=== PATIENT | female | born 1990 | race Caucasian/White ===

== ENCOUNTER 2016-12-03 10:38 | Inpatient (IN) | payer OTHER ==
[~2016-12-03] VITALS: Ht 172.7 cm; Wt 95.5 kg
[~2016-12-03 10:38] MED LIST: METO25TA35 PO
[2016-12-03] MEDS ORDERED: LACTATED RINGERS 1,000 ML IV SCH ×2 (11:54→17:00)
[2016-12-03] MEDS ORDERED: OXYTOCIN 30U/ 0.9% NaCL 500ML 500 ML IV SCH (11:54)
[2016-12-03] MEDS ORDERED: METOCLOPRAMIDE 5 MG/ML, 2ML IV ONE (12:00)
[2016-12-03] MEDS ORDERED: PLEASE ENTER HEIGHT AND WEIGHT MC SCH (12:00)
[2016-12-03] MEDS ORDERED: SODIUM CITRATE/CITRIC ACID 30 ML UDC PO ONE (12:00)
[2016-12-03] MEDS ORDERED: LACTATED RINGERS 1,000 ML IVBOLUS ONE (12:00)
[2016-12-03 12:32] VITALS: BP 124/90
[2016-12-03 12:42] LABS: HEMATOCRIT 35.9 % (34.6-47.8); HEMOGLOBIN 11.8 g/dL (11.7-16.4)
[2016-12-03] MEDS ORDERED: LIDOCAINE-MPF 2% ,5ML ONE (13:28)
[2016-12-03] MEDS ORDERED: PREN1TAB69 PO (13:49)
[2016-12-03] MEDS ORDERED: RANI150C PO (13:50)
[2016-12-03] MEDS ORDERED: OXYTOCIN 30U/ 0.9% NaCL 500ML 500 ML ONE (14:00)
[2016-12-03] MEDS ORDERED: METOCLOPRAMIDE 5 MG/ML, 2ML ONE (14:00)
[2016-12-03] MEDS ORDERED: SODIUM CITRATE/CITRIC ACID 30 ML UDC ONE (14:00)
[2016-12-03] MEDS: LACTATED RINGERS 1,000 ML IV SCH ×3 (14:27→22:27)
[2016-12-03] MEDS: OXYTOCIN 30U/ 0.9% NaCL 500ML 500 ML IV SCH (14:27)
[2016-12-03] MEDS ORDERED: METOCLOPRAMIDE 5 MG/ML, 2ML IV PRN (14:30)
[2016-12-03] MEDS ORDERED: SIMETHICONE 80 MG CHEW TAB PO PRN (14:30)
[2016-12-03] MEDS ORDERED: ONDANSETRON 2MG/ML, 2ML IV PRN (14:30)
[2016-12-03] MEDS ORDERED: ACETAMINOPHEN 325 MG TABLET PO PRN (14:30)
[2016-12-03] MEDS ORDERED: CALCIUM CARBONATE 500 MG TAB.CHEW PO PRN (14:30)
[2016-12-03] MEDS ORDERED: EPHEDRINE 50 MG/ML, 1ML IVPush PRN (15:30)
[2016-12-03] MEDS ORDERED: ONDANSETRON 2MG/ML, 2ML IVPush PRN (15:30)
[2016-12-03] MEDS ORDERED: MEPERIDINE/PF 25MG/0.5ML IVPush PRN (15:30)
[2016-12-03] MEDS ORDERED: HYDROmorphone 1 MG/ML, 1ML IV PRN (15:30)
[2016-12-03] MEDS ORDERED: OXYcodone 5 MG/5 ML ORAL.SOL UDC PO PRN (15:30)
[2016-12-03] MEDS ORDERED: FENTANYL PF 100 MCG/2ML IV PRN (15:30)
[2016-12-03] MEDS: METOPROLOL 1 MG/ML, 5ML IVPush PRN ×3 (16:11→17:20)
[2016-12-03] MEDS ORDERED: OXYcodone 5 MG/5 ML ORAL.SOL UDC ONE (16:37)
[2016-12-03] MEDS ORDERED: MEPERIDINE/PF 100 MG/ML ONE (16:53)
[2016-12-03] MEDS: METOPROLOL TARTRATE 25 MG TABLET PO SCH (18:13)
[2016-12-03] MEDS ORDERED: KETOROLAC 30 MG/1 ML ONE (19:56)
[2016-12-03] MEDS ORDERED: OXYcodone/APAP 5/325MG TABLET ONE ×2 (19:56→23:44)
[2016-12-03] MEDS: KETOROLAC 30 MG/1 ML IV SCH ×2 (20:00→20:30)
[2016-12-03] MEDS: OXYcodone/APAP 5/325MG TABLET PO PRN (20:00)
[2016-12-03 20:10] VITALS: BP 128/85
[2016-12-03] MEDS ORDERED: hydrALAzine 20 MG/ML, 1ML IV PRN (21:30)
[2016-12-04] MEDS: OXYcodone/APAP 5/325MG TABLET PO PRN ×6 (00:06→17:53)
[2016-12-04 00:19] VITALS: BP 123/80
[2016-12-04] MEDS: LACTATED RINGERS 1,000 ML IV SCH ×4 (00:27→22:27)
[2016-12-04] MEDS: OXYTOCIN 30U/ 0.9% NaCL 500ML 500 ML IV SCH (00:27)
[2016-12-04] MEDS: KETOROLAC 30 MG/1 ML IV SCH (02:15)
[2016-12-04] MEDS ORDERED: IBUPROFEN 600 MG TABLET ONE ×2 (02:17→08:17)
[2016-12-04] MEDS: IBUPROFEN 600 MG TABLET PO PRN ×4 (02:30→20:16)
[2016-12-04] MEDS ORDERED: OXYcodone/APAP 5/325MG TABLET ONE ×2 (03:55→08:17)
[2016-12-04 04:07] VITALS: BP 119/72
[2016-12-04 05:11] LABS: HEMATOCRIT 25.3 % (34.6-47.8); HEMOGLOBIN 8.4 g/dL (11.7-16.4); WHITE BLOOD COUNT 10.1 x10^3/uL (3.4-10)
[2016-12-04 05:20] LABS: BLOOD UREA NITROGEN 6 mg/dL (7-18)
[2016-12-04] MEDS: METOPROLOL TARTRATE 25 MG TABLET PO SCH ×2 (06:24→18:22)
[2016-12-04 08:30] VITALS: BP 117/78
[2016-12-04] MEDS: DOCUSATE 100 MG CAPSULE PO PRN ×2 (09:00→20:16)
[2016-12-04] MEDS: PRENATAL VIT/IRON/FA 1 EACH TABLET PO SCH (09:00)
[2016-12-04 12:56] VITALS: BP 116/76
[2016-12-04 17:00] VITALS: BP 119/79
[2016-12-04 20:00] VITALS: BP 126/89
[2016-12-05] VITALS: BP 122/80
[2016-12-05] MEDS: IBUPROFEN 600 MG TABLET PO PRN ×2 (02:06→08:53)
[2016-12-05] MEDS ORDERED: IBUP-1222 PO (05:24)
[2016-12-05] MEDS ORDERED: DOCU-30 PO (05:26)
[2016-12-05] MEDS ORDERED: OXYC-302 PO (05:27)
[2016-12-05] MEDS ORDERED: FERR324T5 PO (05:29)
[2016-12-05 06:00] VITALS: BP 136/89
[2016-12-05] MEDS: METOPROLOL TARTRATE 25 MG TABLET PO SCH (06:01)
[2016-12-05 06:06] LABS: HEMATOCRIT 23.7 % (34.6-47.8); HEMOGLOBIN 7.8 g/dL (11.7-16.4); WHITE BLOOD COUNT 7.7 x10^3/uL (3.4-10)
[2016-12-05] MEDS: LACTATED RINGERS 1,000 ML IV SCH (06:27)
[2016-12-05] MEDS: DOCUSATE 100 MG CAPSULE PO PRN (08:53)
[2016-12-05 09:00] VITALS: BP 130/89
[2016-12-05] MEDS: PRENATAL VIT/IRON/FA 1 EACH TABLET PO SCH (09:00)
[2016-12-05] MEDS ORDERED: IBUPROFEN 600 MG TABLET PO PRN (14:30)
== END 2016-12-05 13:43 | disposition home or self-care (01) | DRG 765 ==
LOC: LDIP 11:48 → 2NE 21:48 → 2NW 12-04 07:54
PROVIDERS: ADMIT Obstetrics & Gynecology
PROC: 10D00Z1 Extraction of Products of Conception, Low, Open Approach (ICD-10-PCS; principal; 2016-12-03)
DX: O10.12 Pre-existing hypertensive heart disease complicating childbirth (principal); Q25.1 Coarctation of aorta; Z37.0 Single live birth; Q24.8 Other specified congenital malformations of heart; Z3A.37 37 weeks gestation of pregnancy; Z79.899 Other long term (current) drug therapy; Z87.442 Personal history of urinary calculi; Z90.89 Acquired absence of other organs; Z88.5 Allergy status to narcotic agent
CPT/HCPCS: 36415; 80048; 85025; 86850; 86900; J1885; J2175; J2590; J2765; J7120